=== PATIENT | male | born 1965 | race Caucasian/White ===

== ENCOUNTER → 2023-07-17 08:10 | Outpatient (REF) | payer OTHER, SELFPAY ==
[2023-07-17 09:06] LABS: % Basophils 0.7 % (0-2); % Eosinophils 3.3 % (0-6); % Immature Granulocytes 0.2 % (0-0.5); % Lymphocytes 35.3 % (20.5-51.1); % Monocytes 7.6 % (1.7-9.3); % Neutrophils 52.9 % (42.2-75.2); Absolute Eosinophils 0.2 10^3/uL (0-0.7); Absolute Lymphocytes 2.2 10^3/uL (1.2-3.4); Absolute Monocytes 0.5 10^3/uL (0.1-0.6); Absolute Neutrophils 3.3 10^3/uL (1.4-6.5); Hematocrit 41.9 % (39.0-52.0); Hemoglobin 14.8 g/dL (13.0-18.0); Mean Corp Hgb Conc. 35.3 g/dL (33.0-37.0); Mean Corpuscular Hgb 32.2 pg (27.0-31.0); Mean Corpuscular Volume 91.1 fL (80.0-94.0); Mean Platelet Volume 10.3 fL (7.4-10.4); Nucleated Red Blood Cells % 0 % (-); Platelet Count 288 10^3/uL (130-400); Red Cell Dist. Width 11.9 % (11.5-14.5); White Blood Cell Count 6.2 10^3/uL (4.8-10.8)
[2023-07-17 09:31] LABS: Blood Urea Nitrogen 22 mg/dl (9-20); Calcium 9.4 mg/dl (8.4-10.2); Carbon Dioxide 29 mmol/L (22-30); Chloride 103 mmol/L (98-107); Glucose 98 mg/dl (70-99); Potassium 4.2 mmol/L (3.5-5.1); Sodium 138 mmol/L (135-145); eGFR > 60.00
== END ==
LOC: REG 08:10
PROVIDERS: ATTENDING PHYSICIAN Orthopaedic Surgery Hand Surgery; FAMILY PHYSICIAN Internal Medicine
DX: Z01.818 Encounter for other preprocedural examination (principal)
CPT/HCPCS: 36415; 80048; 85025; 93005

== ENCOUNTER → 2023-07-23 13:48 | Outpatient (REF) | payer OTHER, SELFPAY | LOC: HWRAD 13:48 | PROVIDERS: ATTENDING PHYSICIAN Orthopaedic Surgery Hand Surgery; FAMILY PHYSICIAN Internal Medicine | DX: M25.511 Pain in right shoulder (principal) | CPT/HCPCS: 73200 ==

== ENCOUNTER 2023-12-26 19:22 | Emergency (ER) | payer OTHER, SELFPAY ==
[2023-12-26 19:26] VITALS: BP 150/100
[2023-12-26 21:48] LABS: % Basophils 0.5 % (0-2); % Eosinophils 1.3 % (0-6); % Immature Granulocytes 0.1 % (0-0.5); % Lymphocytes 30.9 % (20.5-51.1); % Monocytes 6.9 % (1.7-9.3); % Neutrophils 60.3 % (42.2-75.2); Absolute Eosinophils 0.1 10^3/uL (0-0.7); Absolute Lymphocytes 2.6 10^3/uL (1.2-3.4); Absolute Monocytes 0.6 10^3/uL (0.1-0.6); Absolute Neutrophils 5.1 10^3/uL (1.4-6.5); Hematocrit 42.7 % (39.0-52.0); Hemoglobin 15.2 g/dL (13.0-18.0); Mean Corp Hgb Conc. 35.6 g/dL (33.0-37.0); Mean Corpuscular Volume 92.8 fL (80.0-94.0); Mean Platelet Volume 9.8 fL (7.4-10.4); Nucleated Red Blood Cells % 0 % (-); Platelet Count 277 10^3/uL (130-400); Red Cell Dist. Width 11.9 % (11.5-14.5); White Blood Cell Count 8.4 10^3/uL (4.8-10.8)
[2023-12-26 21:55] LABS: Urine Albumin 3+ (Neg - Trace); Urine Bilirubin Negative (Negative); Urine Character Bloody (Clear); Urine Color Red; Urine Glucose Negative (Negative); Urine Ketone Negative (Negative); Urine Leukocyte Trace (Negative); Urine Nitrite Negative (Negative); Urine Occult Blood 4+ (Negative); Urine Specific Gravity 1.015 (<1.030); Urine Urobilinogen Negative (Neg - 1+)
[2023-12-26 21:57] LABS: Urine Red Blood Cell >100 /HPF (0-2)
[2023-12-26 22:00] LABS: ALT (SGPT) 30 U/L (0-50); AST (SGOT) 31 U/L (17-59); Albumin 4.8 g/dl (3.5-5.0); Alkaline Phosphatase 77 U/L (38-126); Blood Urea Nitrogen 19 mg/dl (9-20); Calcium 9.6 mg/dl (8.4-10.2); Carbon Dioxide 25 mmol/L (22-30); Chloride 101 mmol/L (98-107); Glucose 112 mg/dl (70-99); Potassium 4.2 mmol/L (3.5-5.1); Sodium 136 mmol/L (135-145); Total Bilirubin 0.6 mg/dl (0.2-1.3); Total Protein 7.4 g/dl (6.3-8.2); eGFR > 60.00
[2023-12-26 22:13] VITALS: BP 157/98
--- NOTE | 2023-12-26 22:20 | ED.GENMED ---
History of Present Illness
<SHERYL Bradley (Lenka) - Last Filed: 12/27/23 00:52>
General
Chief Complaint: Urinary Symptoms
Source: patient and spouse
Exam Limitations: none
Time Seen by Provider: 12/26/23 22:02
Nursing documentation reviewed up to this point in time: agreed with
History of Present Illness
History of Present Illness:
Pt is a 58yo male with PMHx of HTN who presents to the ED with hematuria x 1 week. Pt states 7d ago (Wednesday, 12/18) in the afternoon/evening he noticed some red spots of blood in his urine. He contacted his PCP who ran a UA, showing no UTI. He
presents tonight with continued hematuria, 'the urine is all blood now'. Pt has noticed that in the mornings and with limited activity his urine is normal yellow color. The blood tinge begins in the evenings after doing activities all day. He notes
that he has had urinary hesitancy for 18 years, and denies increased hesitancy from his baseline, pain with urination, or urinary frequency. He denies any trauma such as aggressive exercise, sexual activity, heavy lifting prior to sx presentation.
He does endorse increased tension-type headaches over the past few months, for which he takes Tylenol with relief. He endorses increased diarrhea over the past 4-6 months, with 3+ loose stools a day, for which he takes Imodium. Denies fevers,
chills, N/V, vision changes, hearing loss, chest pain/tightness or palpitations, dyspnea, back pain, flank pain, abdominal pain, testicular redness/swelling/tenderness, LE edema.
No recent changes to his medications. He takes lisinopril 5mg daily, never misses a dose.
His blood pressure at prior doctor appointments has been 115/70 - 125/80 per patient, but he does not check his BP at home.
Pt has a history of smoking 3 cigarettes/day x 15 years, but he quit over 15 years ago.
Past History
<SHERYL Bradley (Lenka) - Last Filed: 12/27/23 00:52>
Past History
ED Past Medical History: HTN
Social History
Tobacco: Former smoker (4 pack years (3 cigarettes/day x about 15 years), quit around age [age])
Alcohol: None
Drug: None
Personal:
Living: with family
Employment: Employed (drives trucks)
Family History
Family History: Diabetes
Phy Exam
<Aliya Christy (Lenka) [facility] - Last Filed: 12/27/23 00:52>
General Physical Exam
General Presentation: well appearing and no apparent distress
General age: appears stated age
General Skin: warm and dry
General Habitus: normal
General Mental: alert
General Hydration: appears well hydrated
Eye Exam
Eye Exam: conjunctiva normal
Cardiovascular Exam
Cardiovascular Exam: regular rate/rhythm, no edema, no gallop, no murmur and normal peripheral pulses
Heart Sounds: normal
Pulmonary Exam
Pulmonary Exam: lungs clear, no respiratory distress, no rales, no rhonchi and no cough
Gastrointestinal Exam
Gastrointestinal Exam: normal bowel sounds, non tender, soft and non distended
<Guy Saeed DO - Last Filed: 12/27/23 00:44>
ENT Exam
ENT Exam: EOMI, pharynx normal, neck supple and normocephalic
Neurological Exam
Neurological Exam: alert, oriented x3, no motor deficits and speech normal
Musculoskeletal Exam
Musculoskeletal Exam: full ROM and no edema
Skin Exam
Skin Exam: normal color, warm/dry, no rash and no petechia
Psychiatric Exam
Psychiatric Exam: normal mood/affect
Course
<ST Bradley (Lenka)[place] - Last Filed: 12/27/23 00:52>
Orders/Labs/Results
Orders:
Orders
12/26/23
CMP [Comprehensive Metabolic Panel] Urgent
Complete Blood Count/With Diff Urgent
Urinalysis Urgent
Date Specimen was Collected: 12/26/23
Time Specimen was Collected: 19:30
Urine Microscopic Urgent
Date Specimen was Collected: 12/26/23
Time Specimen was Collected: 19:30
12/26/23 22:42
Abdomen/Pelvis w Contrast CT [CT Abd/pelvis W Iv Cont] Urgent
Comment:
Reason For Exam: painless hematuria x 1 week, prior smoker
12/27/23 00:44
Sulfamethox./Trimethoprim Ds [Bactrim Ds 800 mg/160 mg] 1 tablet PO NOW STA
Abnormal Lab Results
12/26/23
Unknown
RBC 4.60 L 10^6/uL
(4.70-6.10)
MCH 33.0 H pg
(27.0-31.0)
Glucose 112 H mg/dl
(70-99)
Urine Occult Blood 4+ A
(Negative)
Ur Leukocyte Esterase Trace A
(Negative)
Urine RBC >100 A /HPF
(0-2)
Urine Albumin 3+ A
(Neg - Trace)
12/26/23 Unknown
12/26/23 Unknown
Vital Signs
Initial and Last Documented VS:
Initial Vital Signs
Temp Pulse Resp BP Pulse Ox
98.4 F 104 22 150/100 98
12/26/23 19:26 12/26/23 19:26 12/26/23 19:26 12/26/23 19:26 12/26/23 19:26
Last Documented Vital Signs
Temp Pulse Resp BP Pulse Ox
98.4 F 68 22 160/98 94
12/26/23 19:26 12/26/23 23:28 12/26/23 19:26 12/26/23 23:28 12/26/23 23:28
<Guy Saeed, DO - Last Filed: 12/27/23 00:44>
Orders/Labs/Results
Orders:
Orders
12/26/23
CMP [Comprehensive Metabolic Panel] Urgent
Complete Blood Count/With Diff Urgent
Urinalysis Urgent
Date Specimen was Collected: 12/26/23
Time Specimen was Collected: 19:30
Urine Microscopic Urgent
Date Specimen was Collected: 12/26/23
Time Specimen was Collected: 19:30
12/26/23 22:42
Abdomen/Pelvis w Contrast CT [CT Abd/pelvis W Iv Cont] Urgent
Comment:
Reason For Exam: painless hematuria x 1 week, prior smoker
12/27/23 00:44
Sulfamethox./Trimethoprim Ds [Bactrim Ds 800 mg/160 mg] 1 tablet PO NOW STA
Abnormal Lab Results
12/26/23
Unknown
RBC 4.60 L 10^6/uL
(4.70-6.10)
MCH 33.0 H pg
(27.0-31.0)
Glucose 112 H mg/dl
(70-99)
Urine Occult Blood 4+ A
(Negative)
Ur Leukocyte Esterase Trace A
(Negative)
Urine RBC >100 A /HPF
(0-2)
Urine Albumin 3+ A
(Neg - Trace)
12/26/23 Unknown
12/26/23 Unknown
Vital Signs
Initial and Last Documented VS:
Initial Vital Signs
Temp Pulse Resp BP Pulse Ox
98.4 F 104 22 150/100 98
12/26/23 19:26 12/26/23 19:26 12/26/23 19:26 12/26/23 19:26 12/26/23 19:26
Last Documented Vital Signs
Temp Pulse Resp BP Pulse Ox
98.4 F 68 22 160/98 94
12/26/23 19:26 12/26/23 23:28 12/26/23 19:26 12/26/23 23:28 12/26/23 23:28
<SHERYL Bradley (Lenka) - Last Filed: 12/27/23 00:52>
MDM/Problems Addressed
Differential Diagnosis Includes:
DDx: HTN urgency vs acute interstitial nephritis vs bladder cancer vs renal cell carcinoma vs UTI vs
Pt presenting with 1 week of painless hematuria, worse at night after activity. No flank or back pain, no pain with urination, no change in urinary frequency, no known trauma/injury. No change to his exercise regimen/increased weight
lifting/physical strain over the past month.
HTN in triage and with repeat check 3 hours later (150/100, 157/98)
UA - trace leuk esterase, no nitrites, 4+ occult blood, > 100 HPF urine RBC, 3+ albumin
Will obtain CTAP with contrast.
Chronic conditions affecting care: HTN
Acute Exacerbation and/or Progression of Chronic Illness: HTN
<SHERYL Bradley (Lenka) - Last Filed: 12/27/23 00:52>
*Critical Care Note
Total Time (30-74mins, 75-104mins- exclusive of procedures): Not Applicable
<Guy Saeed DO - Last Filed: 12/27/23 00:44>
Update Note
Update Note:
CT ABDOMEN AND PELVIS with IV contrast
IMPRESSION:
Enlarged prostate gland with masslike protrusion into the bladder base. This could be related to benign prostatic hypertrophy however given the appearance and history of hematuria recommend follow-up with urology.
Distended bladder with mild wall thickening and some trabeculations at the fundus.
Unremarkable kidneys.
ED Attending Note
<SHERYL Bradley (Lenka) - Last Filed: 12/27/23 00:52>
-
Portions of this chart may have been created with voice recognition software.� Occasional wrong word or��sound alike� substitutions may have occurred due to the inherent limitations of voice recognition software.
<Guy Saeed DO - Last Filed: 12/27/23 00:44>
ED Attending Note
Patient seen and examined by attending physician: Yes
I performed the substantive portion of visit, reviewed & personally made and approve the management plan that is documented in note by myself or KHADIJAH.: Yes
ED Attending Note:
58-year-old male presents with 1 week of hematuria. He states it has been intermittent. He did not see any clots. He was seen by his primary care provider on . Was advised to come to the emergency department if symptoms persist. He did
see a urologist 15 years ago for hesitancy. He was unable to take Flomax. He is not on any blood thinners. He denies fever, chills, nausea or vomiting. Denies any urinary retention or difficulty urinating. Patient was seen in conjunction with
the PA student. I have reviewed and agree with the history and treatment plan presented. On my independent physical exam, patient is awake, alert, and oriented x3, no acute distress at this time. Mentating appropriately. No obvious respiratory
distress. Skin is warm and dry. Moves all 4 extremities.
Spoke with Eduardo John, urologist via [employer]. I did send him a picture of the CT scan as well as the CT scan report. He feels that it is send enlarged prostate.
Per Eduardo Sibley 'if he just came in for the hematuria but isn�t on any blood thinners or having trouble urinating- I don�t think he needs admit- just no strenuous activity and hydration until the bleeding resolves and he can call the office for an
appointment' urine does not look infected. No antibiotics needed at this time.
Discharge Plan
Departure
Patient Disposition: Home (Routine Discharge)
Date of Disposition: 12/27/23
Time of Disposition: 00:41
Patient with high blood pressure during this ER visit?: Yes
Condition: Fair
Discharge Problem:
Hematuria
Instructions: Blood in the Urine (Hematuria), Adult (DC), BLOOD PRESSURE
Prescriptions:
New
sulfamethoxazole-trimethoprim [Bactrim DS] 800-160 mg tablet
1 tab PO BID Qty: 7 0RF
No Action
lisinopril 5 MG tablet
5 mg PO DAILY
metoprolol tartrate 12.5 MG tablet
12.5 mg PO DAILY
oxycodone 5 mg tablet
5 mg PO Q8H PRN (Reason: Pain) Qty: 14 0RF
Referrals:
Eduardo Sibley Jr., MD [Active] - Next open appointment
UNKNOWN - PT DOES,NOT KNOW [Family Provider] -
Activity Restrictions/Additional Instructions:
Your prescription was sent to the pharmacy that you indicated.
Please return to the emergency department with any difficulty urinating, increased pain, fever, chills, nausea or vomiting. Please take your antibiotics completely.
It was a pleasure meeting you and taking part in your care. We hope for your continued healing and wellness.
Please read discharge instructions in their entirety. However, they are for general education and may not describe your exact diagnosis at discharge. Information on your ER visit and medical conditions were discussed with you along with appropriate
follow up information...
If indicated, please take your medications as instructed and indicated on discharge paperwork.
Please schedule a follow up appointment as directed. Call to schedule an appointment
Please return to the emergency department with ANY change in, persisting, or worsening of symptoms. If any of your symptoms do not improve, or persist, or become more severe within 6-12 hours, please return to the emergency department for further
care.
Please return to the emergency department if you develop a headache, neck pain/stiffness, fever greater than 100.4F, chest pain, shortness of breath, persistent nausea, vomiting, slurred speech, difficulty walking, numbness/tingling, weakness, signs
of infection or any other symptoms that are worrisome to you.
If you have any questions or concerns please do not hesitate to call the Hospital at or E-mail me directly at [email or web address]
Interventions
Interventions:
*Risk Screen - Suicide Last Done: 12/26/23 19:26
*Neglect/Abuse Screening Last Done: 12/26/23 19:26
ED-Male Genitourinary Assessment Last Done: 12/26/23 23:29
Discharge Date and Time
Print Language: AZERI
[2023-12-26 23:28] VITALS: BP 160/98
[2023-12-27] MEDS: BACTRIM DS 800 MG/160 MG 1 TABLET PO (00:51)
[2023-12-27 00:53] VITALS: BP 155/95
== END 2023-12-27 01:00 | disposition home or self-care (01) ==
LOC: EMR 19:22
PROVIDERS: Emergency Medicine; EMERGENCY PHYSICIAN Student in an Organized Health Care Education/Training Program
DX: R31.9 Hematuria, unspecified (principal); I10 Essential (primary) hypertension; N40.0 Benign prostatic hyperplasia without lower urinary tract symptoms; Z87.891 Personal history of nicotine dependence
CPT/HCPCS: 99285; 74177; 80053; 81003; 81015; 85025; Q9967